=== PATIENT | female | born 1980 | race Caucasian/White ===

== ENCOUNTER → 2022-09-25 12:00 | Outpatient (BNVA) | payer OTHER, SELFPAY | PROVIDERS: Family Provider Family Medicine; Visit Provider Obstetrics & Gynecology | DX: Z01.419 Encounter for gynecological examination (general) (routine) without abnormal findings (principal); Z12.39 Encounter for other screening for malignant neoplasm of breast; N84.1 Polyp of cervix uteri | CPT/HCPCS: 87624; 88305 ==

== ENCOUNTER 2022-10-06 09:25 | Outpatient (CLI) | payer OTHER, SELFPAY ==
--- NOTE | 2022-10-06 09:35 | MM_ITS ---
WS: [id number] BILATERAL SCREENING DIGITAL TOMOSYNTHESIS MAMMOGRAM WITH CAD HISTORY: Screening. COMPARISON: 02/09/2016 Bilateral CC and MLO views with tomosynthesis and synthetic mammography submitted. Computer aided det ection analyzed. Breast composition: There are scattered areas of fibroglandular density. No suspicious masses, microc alcifications or architectural distortion. MM/[place] [id number] IMPRESSION: BI-RADS: 1-Negative FOLLOW UP: 1 Year Follow-up
== END 2022-10-06 09:26 | disposition home or self-care (01) ==
LOC: RAD 09:29
PROVIDERS: PCP Family Medicine; Visit Provider Obstetrics & Gynecology
DX: Z12.31 Encounter for screening mammogram for malignant neoplasm of breast (principal)
CPT/HCPCS: 77063; 77067

== ENCOUNTER → 2022-10-10 08:27 | Outpatient (BNVA) | payer OTHER, SELFPAY | PROVIDERS: PCP Family Medicine; Visit Provider Obstetrics & Gynecology | DX: N84.1 Polyp of cervix uteri (principal); D25.9 Leiomyoma of uterus, unspecified | CPT/HCPCS: 76830 ==

== ENCOUNTER 2022-11-22 12:44 | Day surgery (SDC) | payer OTHER, SELFPAY ==
[2022-11-20 10:56] LABS: Basophils # 0.1 10^3/uL (0.0-0.1); Eosinophils # 0.2 10^3/uL (0.0-0.8); Eosinophils % 2.6 %; Hematocrit 41.8 % (37.0-47.0); Hemoglobin 13.9 g/dL (11.5-15.3); Lymphocytes # 2.2 10^3/uL (0.8-4.8); Lymphocytes % 28.1 %; Mean Corpuscular HGB Conc 33.3 g/dL (30.0-36.0); Mean Corpuscular Hemoglobin 29.4 pg (28.0-34.0); Mean Corpuscular Volume 88.4 fl (81-99); Mean Platelet Volume 10.3 fL (7.4-10.4); Monocytes # 0.7 10^3/uL (0.2-0.9); Monocytes % 9.2 %; Neutrophils % 58.7 %; Nucleated Red Blood Cells % 0 %; Platelet Count 335 10^3/cmm (130-400); Red Blood Count 4.73 10^6/uL (4.1-5.3); Red Cell Distribution Width 12.8 % (12.1-15.1); White Blood Count 7.7 10^3/uL (4.0-10.0)
[2022-11-20 10:59] LABS: Add Urine Microscopic? YES; Bilirubin Urine Neg (Negative); Blood Urine Neg (Negative); Glucose Urine UA Norm (Normal); Ketones Urine Negative (Negative); Leukocyte Esterase Urine Trace (Negative); Nitrate Urine Negative (Negative); Protein Urine Neg (Negative); Urine Appearance Clear (CLEAR); Urine Color Straw (Yellow); Urobilinogen Urine Norm (Negative); pH Urine 7 (5-7)
[2022-11-20 11:03] VITALS: BMI 32.1
[2022-11-20 11:15] LABS: Add Urine Culture? No; Bacteria Urine TRACE /hpf; WBC Urine 0-4 /hpf (0-5)
--- NOTE | 2022-11-20 11:16 | ANES.PREANE2 ---
Pre-Anesthetic Assessment Height/Weight: Height 1.7 m Weight 92.986 kg Operation Date: 11/22/22 11:35 Proposed Procedures p Hysteroscopy with polypectomy via Mysure 58982(Not Applicable) - Ziggy Eller MD Familial anesthetic complications: None Social No alcohol and No tobacco Exam alert, oriented x 3, clear to auscultation bilaterally and regular rate & rhythm Airway Mallampati: Class II Dentition: full Anesthetic Plan ASA status: 1 Anesthesia: General Risk of > 500 ml blood loss (7ml/kg in children): No Medications/Allergies Home Medications Medication Instructions Recorded Confirmed Last Taken Type No Known Home Medications 09/25/22 11/20/22 Unknown History Allergies Allergy/AdvReac Type Severity Reaction Status Date / Time No Known Allergies Allergy Verified 11/20/22 08:21 [facility] Anesthesia Family History Denies family history of Diabetes Cancer Hypertension Female Reproductive History Date of last menstrual period: 10/23/22 Data Anesthesia 11/20/22 10:25 11/20/22 10:25 Short CBC 11/20/22 Range/Units 10:25 WBC 7.7 (4.0-10.0) 10^3/uL Hgb 13.9 (11.5-15.3) g/dL Hct 41.8 (37.0-47.0) % MCV 88.4 (81-99) fl Plt Count 335 (130-400) 10^3/cmm Neut % (Auto) 58.7 % Neut # (Auto) 4.50 (1.8-7.7) 10^3/uL Urine 11/20/22 Range/Units 10:45 Urine Color Straw (Yellow) Urine Appearance Clear (CLEAR) Urine pH 7 (5-7) Ur Specific [place] 1.010 (1.005-1.030) Urine Protein Neg (Negative) Urine Glucose (UA) Norm (Normal) Urine Ketones Negative (Negative) Urine Nitrate Negative (Negative) Urine Bilirubin Neg (Negative) Ur Leukocyte Esterase Trace H (Negative) Urine RBC None (0-2) /hpf Urine WBC 0-4 H (0-5) /hpf Cardiac Studies: No Data to Display
[2022-11-20 11:17] LABS: Alanine Aminotransferase 23 U/L (0-33); Albumin Level 4.6 g/dL (3.5-5.2); Alkaline Phosphatase 59 U/L (35-105); Anion Gap 13.7 (5-19); Aspartate Amino Transferase 17 U/L (0-32); Blood Urea Nitrogen 11 mg/dL (6-20); Calcium 8.6 mg/dL (8.5-10.5); Carbon Dioxide 25 mmol/L (22-29); Chloride 103 mmol/L (98-107); Glomerular Filtration Rate 110.2 mL/min (90-130); Glucose 96 mg/dL (65-115); Osmolality Calculated 283 mOsm/kg (285-295); Potassium 4.7 mmol/L (3.5-5.1); Sodium 137 mmol/L (136-145); Total Bilirubin 0.4 mg/dL (0.15-1.2); Total Protein 7.6 g/dL (6.6-8.7)
[2022-11-22] VITALS (9 sets, daily range): BP systolic 110–132; BP diastolic 67–87; PULSE 82–111; RESP 14–18; TEMP 36.3–37.1; O2SAT 98–100
--- NOTE | 2022-11-22 13:13 | P.ANESUD_ITS ---
Pre-Anesthetic Update Pre-Anesthetic Assessment: Date of Surgery/Procedure: 11/22/22 Preop Xiomara gnosis: Endocervical polyp Proposed Procedure: Operation Date: 11/22/22 14:25 Proposed Procedures p Hysteroscopy with polypectomy via Mysure 89127(Not Applicable) - Ziggy Eller MD Any changes to Pre-Anesthetic Assessment?: No Vitals: Temperature 97.4 F L 11/22/22 13:11 Temperature Source Temporal Artery S can 11/22/22 13:11 Pulse Rate 82 11/22/22 13:11 Respiratory Rate 16 11/22/22 13:11 Blood Pressure 110/81 11/22/22 13:11 Blood Pressure Marce n 90 11/22/22 13:11 Pulse Oximetry 98 11/22/22 13:11 Oxygen Delivery Me thod 11/22/22 13:11 Exam: Pre-Anes Outpt Exam: alert, oriented x 3, clear to auscultation bilaterally and regular rate & rhythm Cardiac Studies: No Data to Display
[2022-11-22 13:14] LABS: OR HCG Qualitative Urine Negative (Negative)
[2022-11-22] MEDS: sodium chloride 0.9% 500 ML IV (13:27)
[2022-11-22] MEDS: scopolamine 1.5 Patch 1 PATCH TRANSDERMA (13:28)
[2022-11-22] MEDS: sodium chloride 0.9% 1,000 ML 30 ML IV (13:55)
--- NOTE | 2022-11-22 14:11 | W.PM.OPSUD ---
Surgery/Procedure H&P Update DATE OF PROCEDURE: November 22, 2022 DATE H&P PERFORMED: 11/20/22 H&P UPDATE INFORMATION: I have reviewed H&P completed within last 30 days, I have examined patient prior to procedure and No changes to prior documentation PREOP DIAGNOSIS: Endocervical polyp PLANNED PROCEDURE: Operation Date: 11/22/22 14:25 Proposed Procedures p Hysteroscopy with polypectomy via Mysure 90633(Not Applicable) - Ziggy Eller MD
[2022-11-22] MEDS: ceFAZolin 2,000 MG in sodium chloride 0.9% (plus) 50 ML 100 MG IV (15:25)
[2022-11-22] MEDS: lidocaine-epi 2% 20 mL INJ 10 ML INJECTION (15:51)
--- NOTE | 2022-11-22 16:00 | PM.OP ---
Operative Report Date of procedure: November 22, 2022 Pre-op diagnosis: Preop Diagnosis Endocervical polyp Post-op diagnosis: Same as above Post-op findings: Anterior wall endometrial polyp Procedure done: Hysteroscopy Hysteroscopic polypectomy Specimens removed/disposition: Endometrial curetting with endometrial polyp Surgeon: Ziggy Eller MD Estimated blood loss (mL): 5 IV fluids (mL): 600 Findings: Anterior wall endometrial polyp Procedure: After informed consent, the risks included but were not limited to bleeding, infection, injury to internal organs. The patient was counseled on a possible laparotomy and on the potential need for hysterectomy. The patient expressed understanding of the risks involved, all questions were answered, and the patient consented to the procedure. The patient was taken to the operating room where general anesthesia was administered. She was placed in the dorsal lithotomy position and prepped and draped in sterile fashion. A time out procedure was performed. The patient was examined under anesthesia and found to have a normal uterus with normal adnexa. A sterile weight speculum was placed in the vagina. The uterus was then gently sounded to 8 cm, and the cervix was dilated. The 0 degrees MyoSure hysteroscope was advanced gently to the uterine fundus while visualizing the monitor. Survey of the uterine cavity showed: Endometrial polyp on anterior endometrial wall, the fundus shows normal proliferative endometrium; left ostium was visualized, and lateral wall with proliferative endometrium; right ostium visualized, and lateral wall with proliferative endometrium; anterior and posterior ling are with proliferative endometrium and endometrial polyp of anterior wall; endocervical canal is normal. The MyoSure device was advanced and the direct visualization the polyp and endometrial were morcellated without complication. At the end of morcellation the fluid deficit was 200 mL and was estimated at approximately 100 mL were on the floor. There was minimal bleeding noted and the tenaculum removed with goad hemostasis noted. The patient tolerated the procedure well. The patient was taken to the recovery area in stable condition.
--- NOTE | 2022-11-22 16:11 | SUR.PHASEI ---
patient into pacu awake but drowsy, simple mask in place 6L O2, sats at 100%. patient has [place] pad in place, states no pain.
--- NOTE | 2022-11-22 16:25 | ANE.PACU2 ---
Inpatient post-anesthesia follow up: Airway intact: Yes Vital signs: Temperature 98.7 F Pulse Rate 97 Respiratory Rate 18 Blood Pressure 120/67 Pulse Oximetry 99 Oxygen Delivery Me thod Room Air Oxygen Flow Rate 6 Fraction of Inspir ed Oxygen Hydration adequate: Yes Nausea and vomiting: No Pain level: 1 Mental status: Baseline
== END 2022-11-22 17:20 | disposition home or self-care (01) ==
PROVIDERS: PCP Family Medicine; Visit Provider Obstetrics & Gynecology
PROC: 0UDB8ZZ Extraction of Endometrium, Via Natural or Artificial Opening Endoscopic (ICD-10-PCS; CPT 58558; principal; 2022-11-22 14:15)
DX: N84.1 Polyp of cervix uteri (principal); D25.9 Leiomyoma of uterus, unspecified
CPT/HCPCS: 58558; 36415; 80053; 81001; 81025; 84703; 85025; 86850; 86900; 88305; J0690; J1100; J1885; J2250; J2405; J2704; J3010; J7030; J7040

== ENCOUNTER 2023-12-21 07:50 | Outpatient (CLI) | payer OTHER, SELFPAY ==
--- NOTE | 2023-12-21 08:00 | MM_ITS ---
WS: [id number] BILATERAL SCREENING DIGITAL TOMOSYNTHESIS MAMMOGRAM WITH CAD HISTORY: Z12.31 - Encounter for screening mammogram for malignant ... COMPARISON: 10/06/2022, 02/09/2016 Bilateral CC and MLO views with tomosynthesis and synthetic mammography submitted. Computer aided det ection analyzed. Breast composition: There are scattered areas of fibroglandular density. No suspicious masses, microc alcifications or architectural distortion. IMPRESSION: MM/[place] [id number] BI-RADS: 1-Negative FOLLOW UP: 1 Year Follow-up
== END 2023-12-21 07:51 | disposition home or self-care (01) ==
LOC: RAD 07:51
PROVIDERS: PCP Family Medicine; Visit Provider Obstetrics & Gynecology
DX: Z12.31 Encounter for screening mammogram for malignant neoplasm of breast (principal)
CPT/HCPCS: 77063; 77067

== ENCOUNTER → 2025-06-11 09:46 | Outpatient (BNVA) | payer OTHER, SELFPAY | PROVIDERS: PCP Family Medicine; Visit Provider Obstetrics & Gynecology | DX: Z01.419 Encounter for gynecological examination (general) (routine) without abnormal findings (principal); R53.83 Other fatigue | CPT/HCPCS: 84443 ==

== ENCOUNTER 2025-06-18 08:23 | Outpatient (CLI) | payer OTHER, SELFPAY ==
--- NOTE | 2025-06-18 08:40 | MM_ITS ---
WS: [id number] BILATERAL SCREENING DIGITAL TOMOSYNTHESIS MAMMOGRAM WITH CAD HISTORY: Z12.39 - Encounter for other screening for malignant neop... COMPARISON: 12/21/2023, 10/06/2022, Bilateral CC and MLO views with tomosynthesis and synthetic mammography submitted. Computer aided detection analyzed. Breast composition: There are scattered areas of fibroglandular density. No suspicious masses, microcalcifications or architectural distortion. MM/MM scr BI tomosynthesis [id number] IMPRESSION: BI-RADS: 2 - Benign. FOLLOW UP: 1 Year Follow-up
== END 2025-06-18 08:24 | disposition home or self-care (01) ==
PROVIDERS: PCP Family Medicine; Visit Provider Obstetrics & Gynecology
DX: Z12.31 Encounter for screening mammogram for malignant neoplasm of breast (principal); R92.323 Mammographic fibroglandular density, bilateral breasts
CPT/HCPCS: 77063; 77067